=== PATIENT | female | born 1970 | race Caucasian/White ===

== ENCOUNTER 2024-12-17 09:30 | Emergency (ER) | payer OTHER ==
[~2024-12-17] VITALS: Ht 167.6 cm; Wt 72.6 kg
[2024-12-17 15:07] LABS: BASOPHILS # (AUTO) 0.1 K/UL (0.0-0.2); BASOPHILS % (AUTO) 0.7 % (0.0-2.0); EOSINOPHILS # (AUTO) 0.2 K/uL (0.0-0.7); EOSINOPHILS % (AUTO) 1.9 % (0.0-7.0); HEMATOCRIT 41.5 % (31.2-41.9); HEMOGLOBIN 13.8 g/dL (10.9-14.3); LYMPHOCYTES # (AUTO) 2.3 K/uL (0.8-4.8); LYMPHOCYTES % (AUTO) 26.7 % (20.5-51.5); MEAN CORPUSCULAR HGB CONC 33 g/dL (32.3-35.6); MEAN CORPUSCULAR VOLUME 90.2 fL (75.5-95.3); MONOCYTES # (AUTO) 0.6 K/uL (0.1-1.30); MONOCYTES % (AUTO) 6.8 % (0.0-11.0); NEUTROPHILS # (AUTO) 5.5 K/uL (1.8-8.9); NEUTROPHILS % (AUTO) 63.9 % (38.5-71.5); PLATELET COUNT (AUTO) 336 K/uL (179-408); RED CELL DISTRIBUTION WIDTH 14.5 % (12.3-17.7); WHITE BLOOD COUNT (AUTO) 8.6 K/uL (3.8-11.8)
[2024-12-17 15:28] LABS: CALCIUM 9.9 mg/dL (8.5-10.1); CARBON DIOXIDE 28 mmol/L (21-32); CHLORIDE 103 mmol/L (98-107); CREATININE 0.6 mg/dL (0.6-1.3); GLUCOSE 94 mg/dL (74-106); POTASSIUM 4.5 mmol/L (3.5-5.1); SODIUM SERUM 141 mmol/L (136-145); UREA NITROGEN, BLOOD 11 mg/dL (7-18)
[2024-12-17 15:39] LABS: ALANINE AMINOTRANSFERASE 32 U/L (14-59); ALBUMIN 4.1 g/dL (3.4-5.0); ALKALINE PHOSPHATASE 65 U/L (50-136); ASPARTATE AMINOTRANSFERASE 16 U/L (15-37); BILIRUBIN,DIRECT 0.1 mg/dL (0.0-0.2); BILIRUBIN,TOTAL 0.6 mg/dL (0.2-1.0); NT-PRO BNP 69 pg/mL (0-125); TOTAL PROTEIN, SERUM 7.4 g/dL (6.4-8.2)
[2024-12-17] MEDS ORDERED: PRED50TA PO (15:53)
[2024-12-17] MEDS ORDERED: AZIT500T PO (15:53)
[2024-12-17] MEDS ORDERED: PROM118S5 PO (15:53)
[2024-12-17 15:55] VITALS: O2SAT 99
== END 2024-12-17 15:55 | disposition home or self-care (01) ==
LOC: ER 09:30
DX: J18.9 Pneumonia, unspecified organism (principal); G25.81 Restless legs syndrome; Z79.52 Long term (current) use of systemic steroids; Z90.710 Acquired absence of both cervix and uterus; Z20.822 Contact with and (suspected) exposure to COVID-19
CPT/HCPCS: 36415; 71045; 84484; 85025; 85730; A4606; A4663